=== PATIENT | female | born 2000 | race African-American/Black ===

== ENCOUNTER 2023-01-28 15:52 | Emergency (ER) | payer OTHER ==
[~2023-01-28] VITALS: Ht 154.9 cm; Wt 51.7 kg
[2023-01-28 15:54] VITALS: TEMP 98.1
[2023-01-28] MEDS ORDERED: MULTTAB20 PO (16:00)
[2023-01-28 17:20] LABS: BASO % 0.5 % (0.0-1.0); EOS # 0.1 10^3/uL (0.0-0.5); EOS % 1.5 % (0.0-3.0); HEMATOCRIT 31.4 % (36.0-47.0); LYMPH # 1.8 10^3/uL (1.5-5.0); LYMPH % 24.4 % (24.0-44.0); MEAN CORPUSCULAR HEMOGLOBIN 29.4 pg (27.0-33.0); MONO # 0.4 10^3/uL (0.0-0.8); MONO % 4.9 % (2.0-8.0); NEUTROPHILS # 5.2 10^3/uL (1.5-8.5); NEUTROPHILS % 68.3 % (36.0-66.0); PLATELET COUNT, AUTOMATED 257 10^3/uL (150-450); RED BLOOD COUNT 3.74 10^6/uL (4.00-5.40); WHITE BLOOD COUNT 7.5 10^3/uL (4.0-10.0)
[2023-01-28 17:49] LABS: LIPASE 49 U/L (12-53)
[2023-01-28 17:51] LABS: ALBUMIN 3.1 G/DL (3.2-5.2); ALKALINE PHOSPHATASE 50 U/L (46-116); ALT/SGPT 11 U/L (7.0-40); AST/SGOT < 8 U/L (<34); BILIRUBIN,DIRECT < 0.1 MG/DL (<0.4); BILIRUBIN,TOTAL 0.2 MG/DL (0.3-1.2); TOTAL PROTEIN 6.3 G/DL (5.7-8.2)
[2023-01-28 18:40] LABS: HCG, SERUM QUANTITATIVE 26078.4 MIU/ML (<4.2)
[2023-01-28] MEDS ORDERED: CYCL5TAB PO (19:10)
[2023-01-28 19:39] VITALS: BP 121/61; O2SAT 99
== END 2023-01-28 19:30 | disposition home or self-care (01) ==
LOC: M ED 15:52
DX: O26.92 Pregnancy related conditions, unspecified, second trimester (principal); Z3A.18 18 weeks gestation of pregnancy

== ENCOUNTER 2023-05-14 03:55 | Outpatient (CLI) | payer OTHER ==
[2023-05-14] VITALS (7 sets, daily range): BP systolic 133–150; BP diastolic 63–87
[~2023-05-14] VITALS: Ht 154.9 cm; Wt 58.9 kg
[~2023-05-14 03:55] MED LIST: CYCL5TAB PO; MULTTAB20 PO
[2023-05-14] MEDS ORDERED: HOME MED LIST COMPLETE! XX SCH (04:20)
[2023-05-14 04:54] LABS: APPEARANCE, URINE CLEAR (CLEAR); BACTERIA, URINE AUTO NEGATIVE (NEGATIVE); BILIRUBIN, URINE AUTO NEGATIVE (NEGATIVE); BLOOD, URINE BLOOD 2+ (NEGATIVE); COLOR, URINE STRAW (YELLOW); GLUCOSE, URINE (UA) AUTO NEGATIVE (NEGATIVE); KETONE, URINE AUTO NEGATIVE (NEGATIVE); LEUKOCYTE ESTERASE, URINE AUTO NEGATIVE (NEGATIVE); NITRITE, URINE AUTO NEGATIVE (NEGATIVE); PROTEIN, URINE AUTO NEGATIVE (NEGATIVE); RBC, URINE AUTO 0 /HPF (0-3); SPECIFIC GRAVITY URINE AUTO 1.003 (1.002-1.035); SQUAMOUS EPITHELIAL CELL UR AU 0 /HPF (0-6); UROBILINOGEN, URINE AUTO 0.2 mg/dL (0.0-2.0); WBC, URINE AUTO 0 /HPF (0-3)
[2023-05-14 05:22] LABS: CREATININE,RANDOM URINE 23.4 MG/DL
[2023-05-14 05:44] LABS: TOTAL PROTEIN,RANDOM URINE < 6.0 MG/DL (0.0-14.0)
[2023-05-14 06:26] LABS: HEMATOCRIT 30.7 % (36.0-47.0); HEMOGLOBIN 10.6 g/dl (12.0-15.5); MEAN CORPUSCULAR HEMOGLOBIN 30.1 pg (27.0-33.0); MEAN CORPUSCULAR HGB CONC 34.5 g/dl (32.0-36.5); MEAN CORPUSCULAR VOLUME 87.2 fl (80.0-96.0); PLATELET COUNT, AUTOMATED 214 10^3/uL (150-450); RED BLOOD COUNT 3.52 10^6/uL (4.00-5.40); WHITE BLOOD COUNT 8.4 10^3/uL (4.0-10.0)
[2023-05-14 06:36] LABS: ALBUMIN 2.6 G/DL (3.2-5.2); ALKALINE PHOSPHATASE 94 U/L (46-116); ALT/SGPT 22 U/L (7.0-40); AST/SGOT 15 U/L (<34); BILIRUBIN,TOTAL 0.2 MG/DL (0.3-1.2); BLOOD UREA NITROGEN < 5 MG/DL (9-23); CALCIUM LEVEL 8.5 MG/DL (8.5-10.1); CARBON DIOXIDE LEVEL 22 MMOL/L (20-31); CHLORIDE LEVEL 108 MMOL/L (98-107); CREATININE FOR GFR 0.49 MG/DL (0.55-1.30); GLOMERULAR FILTRATION RATE > 60.0 (>60); GLUCOSE, FASTING 83 MG/DL (60-100); POTASSIUM SERUM 3.5 MMOL/L (3.5-5.1); SODIUM LEVEL 137 MMOL/L (136-145); TOTAL PROTEIN 6.2 G/DL (5.7-8.2)
== END 2023-05-14 06:07 | disposition home or self-care (01) ==
LOC: M LDO 03:55
PROVIDERS: ATTEND Obstetrics & Gynecology
DX: O26.893 Other specified pregnancy related conditions, third trimester (principal); R25.2 Cramp and spasm; Z3A.33 33 weeks gestation of pregnancy; O99.893 Other specified diseases and conditions complicating puerperium; N93.0 Postcoital and contact bleeding

== ENCOUNTER 2023-07-01 04:08 | Inpatient (IN) | payer OTHER ==
[2023-07-01] VITALS (49 sets, daily range): BP systolic 110–173; BP diastolic 61–107; O2SAT 100
[~2023-07-01] VITALS: Ht 154.9 cm; Wt 64.2 kg
[2023-07-01] MEDS ORDERED: HOME MED LIST COMPLETE! XX SCH (04:20)
[2023-07-01 05:40] LABS: MEAN CORPUSCULAR HEMOGLOBIN 29.5 pg (27.0-33.0); MEAN CORPUSCULAR HGB CONC 34.4 g/dl (32.0-36.5); MEAN CORPUSCULAR VOLUME 85.8 fl (80.0-96.0); PLATELET COUNT, AUTOMATED 214 10^3/uL (150-450); RED BLOOD COUNT 3.73 10^6/uL (4.00-5.40); WHITE BLOOD COUNT 10.7 10^3/uL (4.0-10.0)
[2023-07-01 05:54] LABS: LDH LACTATE DEHYDROGENASE 232 U/L (120-246)
[2023-07-01 05:55] LABS: ALT/SGPT 20 U/L (7.0-40); AST/SGOT 20 U/L (<34); BILIRUBIN,TOTAL 0.3 MG/DL (0.3-1.2); CREATININE FOR GFR 0.48 MG/DL (0.55-1.30); GLOMERULAR FILTRATION RATE > 60.0 (>60)
[2023-07-01] MEDS ORDERED: PENICILLIN G POTASSIUM 5 MU IV 5 MU in D5W MINI-BAG PLUS 100 ML IV ONE (06:00)
[2023-07-01 06:29] LABS: URIC ACID 3.7 MG/DL (3.1-7.8)
[2023-07-01] MEDS ORDERED: LR 1,000 ML IV ONE (06:30)
[2023-07-01] MEDS ORDERED: TRANEXAMIC ACID INJection 1,000 MG in NS 100 ML IV PRN (06:35)
[2023-07-01] MEDS ORDERED: OXYTOCIN DRIP 30 UNITS in IV 1 EA IV SCH ×2 (06:35→17:00)
[2023-07-01] MEDS ORDERED: LIDOCAINE 1% MDV 20ML VIAL INFIL PRN (06:35)
[2023-07-01] MEDS ORDERED: OXYTOCIN INJ 10UNITS/ML 1ML VIAL IM PRN (06:35)
[2023-07-01] MEDS ORDERED: METHYLERGONOVINE MALEATE 0.2MG/ML 1ML VIAL IM PRN (06:35)
[2023-07-01] MEDS ORDERED: CARBOPROST TROMETHAMINE 250 MCG/ML AMP IM PRN (06:35)
[2023-07-01] MEDS ORDERED: OXYTOCIN INJ 10UNITS/ML 1ML VIAL IV PRN (06:35)
[2023-07-01] MEDS ORDERED: OXYTOCIN DRIP 30 UNITS in IV 1 EA IV PRN ×6 (06:35)
[2023-07-01] MEDS ORDERED: LR 1,000 ML IV SCH (06:35)
[2023-07-01] MEDS ORDERED: ONDANSETRON 4MG 2ML VIAL IV PRN (07:00)
[2023-07-01] MEDS ORDERED: EPIDURAL/PCA KEYS XX PRN (07:00)
[2023-07-01] MEDS ORDERED: ePHEDrine SULFATE 25 MG/5 ML(5MG/ML) SYRINGE IVP PRN (07:00)
[2023-07-01] MEDS ORDERED: NALOXONE INJ 0.4MG/1ML VIAL IV PRN (07:00)
[2023-07-01] MEDS ORDERED: LR 500 ML IV PRN (07:00)
[2023-07-01] MEDS ORDERED: diphenhydrAMINE 50MG/ML VIAL IV PRN (07:00)
[2023-07-01] MEDS ORDERED: FENTANYL 2MCG/ML ROPIVACAINE 0.2% IN 0.9% NACL 100ML IVBAG As Ordered ONE (07:04)
[2023-07-01] MEDS: LR 1,000 ML IV SCH ×2 (07:19→16:06)
[2023-07-01] MEDS: FENTANYL/ROPIVACAINE/NACL BAG 100 ML EPIDURAL SCH ×2 (08:08→18:03)
[2023-07-01 08:51] LABS: TOTAL PROTEIN,RANDOM URINE 12.1 MG/DL (0.0-14.0)
[2023-07-01 08:56] LABS: CREATININE,RANDOM URINE 46.5 MG/DL
[2023-07-01] MEDS: PEN G POT 3,000,000 UNIT/50 ML 3,000,000 UNIT in IV 1 EA IV SCH ×4 (10:00→21:57)
[2023-07-01] MEDS ORDERED: ACETAMINOPHEN 500 MG TAB PO ONE (17:05)
[2023-07-02 01:23] LABS: CORD GAS ABE V -11.9; CORD GAS O2 SAT V 46.1 %; CORD GAS PH V 7.188 UNITS; CORD GAS PO2 V 23.7 mmHg; CORD GAS SBC V 14.3 MMOL/L; CORD GAS TCO2 V 17.3 MMOL/L
[2023-07-02 01:43] VITALS: BP 137/79
[2023-07-02] MEDS ORDERED: IBUPROFEN 600MG TAB PO PRN (01:45)
[2023-07-02] MEDS ORDERED: DIBUCAINE 1% OINTMENT 30GM TOP PRN (01:45)
[2023-07-02] MEDS ORDERED: DOCUSATE SODIUM 100MG CAPSULE PO PRN (01:45)
[2023-07-02] MEDS ORDERED: OXYTOCIN DRIP 30 UNITS in IV 1 EA IV SCH (01:45)
[2023-07-02] MEDS ORDERED: METHYLERGONOVINE MALEATE 0.2 MG TAB PO PRN (01:45)
[2023-07-02] MEDS ORDERED: IBUPROFEN 800 MG TAB PO PRN (01:45)
[2023-07-02] MEDS ORDERED: ACETAMINOPHEN TAB 650MG DOSE (2X325MG) PO PRN (01:45)
[2023-07-02 01:57] VITALS: BP 143/85
[2023-07-02 02:12] VITALS: BP 139/85
[2023-07-02 02:27] VITALS: BP 145/86
[2023-07-02 04:15] VITALS: BP 132/66; O2SAT 98
[2023-07-02] MEDS: ACETAMINOPHEN 500 MG TAB PO PRN ×2 (04:20→18:23)
[2023-07-02] MEDS: PRENATAL VITAMINS CHEWABLE TABLET PO SCH (09:43)
[2023-07-02 18:00] VITALS: BP 123/74; O2SAT 99
[2023-07-03] MEDS: PRENATAL VITAMINS CHEWABLE TABLET PO SCH (09:26)
[2023-07-03 18:00] VITALS: BP 128/75; O2SAT 98
[2023-07-04 06:00] VITALS: BP 139/73; O2SAT 100
[2023-07-04] MEDS: PRENATAL VITAMINS CHEWABLE TABLET PO SCH (08:39)
== END 2023-07-04 13:10 | disposition home or self-care (01) | DRG 807 ==
LOC: M LDO 04:08 → M LDI 05:02 → M OBS 07-02 04:06
PROVIDERS: ADMIT Obstetrics & Gynecology; ATTEND Advanced Practice Midwife
PROC: 10907ZC Drainage of Amniotic Fluid, Therapeutic from Products of Conception, Via Natural or Artificial Opening (ICD-10-PCS; 2023-07-01)
PROC: 10E0XZZ Delivery of Products of Conception, External Approach (ICD-10-PCS; principal; 2023-07-02)
PROC: 0HQ9XZZ Repair Perineum Skin, External Approach (ICD-10-PCS; 2023-07-02)
DX: O13.4 Gestational [pregnancy-induced] hypertension without significant proteinuria, complicating childbirth (principal); Z37.0 Single live birth; Z3A.40 40 weeks gestation of pregnancy; O99.824 Streptococcus B carrier state complicating childbirth; O69.1XX0 Labor and delivery complicated by cord around neck, with compression, not applicable or unspecified; O70.0 First degree perineal laceration during delivery

== ENCOUNTER 2024-01-23 03:32 | Emergency (ER) | payer OTHER ==
[~2024-01-23] VITALS: Ht 154.9 cm; Wt 48.9 kg
[2024-01-23 06:52] VITALS: BP 122/75; TEMP 98; O2SAT 100
== END 2024-01-23 06:53 | disposition home or self-care (01) ==
LOC: M ED 03:32
DX: Z00.00 Encounter for general adult medical examination without abnormal findings (principal)

== ENCOUNTER 2024-02-13 01:02 | Emergency (ER) | payer OTHER ==
[~2024-02-13] VITALS: Ht 154.9 cm; Wt 49.4 kg
[2024-02-13 03:29] LABS: Trichomonas vaginalis (AMP) NOT DETECTED (NEGATIVE)
[2024-02-13 03:53] LABS: GC DNA AMPLIFICATION NEGATIVE (NEGATIVE)
[2024-02-13 05:15] LABS: BASO % 0.5 % (0.0-1.0); EOS # 0.2 10^3/uL (0.0-0.5); EOS % 2.6 % (0.0-3.0); HEMATOCRIT 38.8 % (36.0-47.0); HEMOGLOBIN 12.9 g/dl (12.0-15.5); LYMPH % 37.7 % (24.0-44.0); MEAN CORPUSCULAR HEMOGLOBIN 28.5 pg (27.0-33.0); MEAN CORPUSCULAR HGB CONC 33.2 g/dl (32.0-36.5); MEAN CORPUSCULAR VOLUME 85.7 fl (80.0-96.0); MONO # 0.5 10^3/uL (0.0-0.8); MONO % 5.9 % (2.0-8.0); NEUTROPHILS # 4.2 10^3/uL (1.5-8.5); PLATELET COUNT, AUTOMATED 298 10^3/uL (150-450); RED BLOOD COUNT 4.53 10^6/uL (4.00-5.40)
[2024-02-13 05:40] LABS: BLOOD UREA NITROGEN 19 MG/DL (9-23); CALCIUM LEVEL 9.4 MG/DL (8.5-10.1); CARBON DIOXIDE LEVEL 28 MMOL/L (20-31); CHLORIDE LEVEL 103 MMOL/L (98-107); CREATININE FOR GFR 1.02 MG/DL (0.55-1.30); GLOMERULAR FILTRATION RATE > 60.0 (>60); GLUCOSE, FASTING 88 MG/DL (60-100); POTASSIUM SERUM 3.8 MMOL/L (3.5-5.1); SODIUM LEVEL 137 MMOL/L (136-145)
[2024-02-13 06:02] VITALS: TEMP 97.6
[2024-02-13 06:52] VITALS: BP 128/58; O2SAT 100
[2024-02-13] MEDS ORDERED: METR0.7526 TOP (08:05)
[2024-02-13] MEDS: metroNIDAZOLE (FLAGYL) 500MG TABLET PO ONE (08:13)
== END 2024-02-13 08:14 | disposition home or self-care (01) ==
LOC: M ED 01:02
DX: N76.0 Acute vaginitis (principal); Z79.810 Long term (current) use of selective estrogen receptor modulators (SERMs); Z79.899 Other long term (current) drug therapy

== ENCOUNTER 2024-12-15 10:39 | Emergency (ER) | payer OTHER ==
[~2024-12-15] VITALS: Ht 154.9 cm; Wt 50.4 kg
[~2024-12-15 10:39] MED LIST changes: -CYCL5TAB PO; +CYCL5TAB4 PO; +METR0.7526 TOP
[2024-12-15 12:43] LABS: KETONE, URINE AUTO RFX NEGATIVE (NEGATIVE); LEUKOCYTE ESTERASE UR AUTO RFX NEGATIVE (NEGATIVE); NITRITE, URINE AUTO RFX NEGATIVE (NEGATIVE); RBC, URINE AUTO RFX 0 /HPF (0-3); SQUAM EPITHELIAL CELL UR AURFX 0 /HPF (0-6); WBC, URINE AUTO RFX 0 /HPF (0-3)
[2024-12-15 12:45] LABS: BASO % 0.4 % (0.0-1.0); EOS # 0.2 10^3/uL (0.0-0.5); EOS % 2.1 % (0.0-3.0); HEMATOCRIT 35.3 % (36.0-47.0); HEMOGLOBIN 12.2 g/dl (12.0-15.5); LYMPH # 2.1 10^3/uL (1.5-5.0); LYMPH % 25.1 % (24.0-44.0); MEAN CORPUSCULAR HEMOGLOBIN 28.9 pg (27.0-33.0); MEAN CORPUSCULAR HGB CONC 34.6 g/dl (32.0-36.5); MEAN CORPUSCULAR VOLUME 83.6 fl (80.0-96.0); MONO # 0.4 10^3/uL (0.0-0.8); MONO % 4.1 % (2.0-8.0); NEUTROPHILS # 5.8 10^3/uL (1.5-8.5); NEUTROPHILS % 68.1 % (36.0-66.0); PLATELET COUNT, AUTOMATED 303 10^3/uL (150-450); RED BLOOD COUNT 4.22 10^6/uL (4.00-5.40); WHITE BLOOD COUNT 8.5 10^3/uL (4.0-10.0)
[2024-12-15 13:00] LABS: BLOOD UREA NITROGEN 6 MG/DL (9-23); CALCIUM LEVEL 8.9 MG/DL (8.5-10.1); CARBON DIOXIDE LEVEL 24 MMOL/L (20-31); CHLORIDE LEVEL 107 MMOL/L (98-107); CREATININE FOR GFR 0.52 MG/DL (0.55-1.30); GLOMERULAR FILTRATION RATE > 90.0 (>60); GLUCOSE, FASTING 90 MG/DL (60-100); POTASSIUM SERUM 3.4 MMOL/L (3.5-5.1); SODIUM LEVEL 138 MMOL/L (136-145)
[2024-12-15 13:17] VITALS: BP 132/64; TEMP 98.4; O2SAT 100
== END 2024-12-15 13:37 | disposition home or self-care (01) ==
LOC: M ED 10:39
DX: O26.891 Other specified pregnancy related conditions, first trimester (principal); R10.2 Pelvic and perineal pain; Z3A.11 11 weeks gestation of pregnancy; Z79.899 Other long term (current) drug therapy